=== PATIENT | female | born 1995 | race Caucasian/White ===

== ENCOUNTER 2021-10-23 19:28 | Emergency (ER) | payer MEDICAID ==
[~2021-10-23] VITALS: Ht 149.9 cm; Wt 50.0 kg
[2021-10-23 20:24] VITALS: BP 110/62
[2021-10-23] MEDS ORDERED: AZITTAB PO (22:06)
[2021-10-23] MEDS ORDERED: PROM1SOL4 PO (22:09)
== END 2021-10-23 22:11 | disposition home or self-care (01) ==
LOC: ER 19:46
DX: J40 Bronchitis, not specified as acute or chronic (principal); Z20.822 Contact with and (suspected) exposure to COVID-19
CPT/HCPCS: 36415; 71045; 87804

== ENCOUNTER 2024-11-07 19:37 | Emergency (ER) | payer MEDICAID ==
[~2024-11-07] VITALS: Ht 149.9 cm; Wt 59.7 kg
[~2024-11-07 19:37] MED LIST: AZITTAB PO; PROM1SOL4 PO
[2024-11-07 23:00] LABS: Hematocrit 38.1 % (36.0-46.0); Hemoglobin 13.1 g/dL (12.2-16.2); Mean Corpuscular Hemoglobin 28.3 pg (28.0-32.0); Mean Corpuscular Volume 82.0 fL (80.0-100.0); Nucleated Red Blood Cells % 0.1 %
[2024-11-07 23:12] LABS: Chloride 105 mmol/L (98-107); Sodium 139 mmol/L (136-145)
[2024-11-07 23:13] LABS: Anion Gap 10 (5-15); Carbon Dioxide 24 mmol/L (20-31)
[2024-11-07 23:14] LABS: Calcium 9.1 mg/dL (8.7-10.4)
[2024-11-07 23:18] LABS: BUN/Creatinine Ratio 20.6 (10.0-20.0); Blood Urea Nitrogen 13 mg/dL (9-23); Glucose 98 mg/dL (74-106)
[2024-11-07 23:21] LABS: Potassium 3.5 mmol/L (3.5-5.1)
--- NOTE | 2024-11-08 00:28 | DVH ---
INDICATION: preg vb TECHNIQUE: Multiple real-time grayscale transabdominal sonographic images along with color and duplex Doppler of the uterus and ovaries were obtained. COMPARISON: None FINDINGS: The uterus measures 10.9 x 6.7 x 6.5 cm. Intrauterine gestational sac measures 3.5 cm corre sponding with an 8 week 4 day gestation. Yolk sac identified. heart tones not documented at th is time. The pole is not identified. Trace cervical fluid and pelvic cul-de-sac free fluid. Right ovary not visualized. Left ovary measures 2.4 x 2.0 x 1.8 cm with normal Doppler color flow. Hypoechoic structure within t he right ovary measures 1.3 x 1.1 x 1.1 cm. IMPRESSION: 1. Intrauterine gestational sac corresponding with an 8 week 4 day gestation without identifiable fet al pole or heart tones at this time. Yolk sac identified. 2. Hypoechoic left ovarian structure consistent with corpus luteum versus ovarian cyst. 3. Pelvic cul-de-sac and cervical fluid.
--- NOTE | 2024-11-08 00:32 | ED.PDOC ---
[employer] HPI Comments 29-year-old female with current approximate 8 week brought in by significant other for evaluation of vaginal spotting for the last 2 days. Patient states today around 1800 she passed a clot. She denies any abdominal pain, nausea, vomiting, fever or dysuria. She states her last period was 08/18/2024. She states she had a prior ultrasound which showed a gestational sac but no IUP. Chief Complaint: Time Seen by MD: 22:06 Reviewed Notes: Nurses Notes Allergies: Coded Allergies: NO KNOWN ALLERGIES (Unverified , 12/25/15) Home Meds Active Scripts Promethazine-Dm (Promethazine Dm 6.25-15 mg/5Ml) 1 Madelin Madelin, 5 ML PO Q4HPRN PRN, #50 ML 0 Refills 5ml every 4 to 6 hours as needed for cough Prov:FANTA LIU 10/23/21 Azithromycin (Zithromax Z-Wilian) 250 Mg Tab, 250 MG PO DAILY for 5 Days, #5 TAB 0 Refills Prov:FANTA LIU 10/23/21 Information Source: Patient Mode of Arrival: Ambulatory Timing: Hours Past Medical History PAST MEDICAL HISTORY: Denies Surgical History: Denies all surgeries NETWORK CONSULTANT History: No Pertinent NETWORK CONSULTANT History 1 Para 0 LMP August 18, 2024 Family History Family History: Reviewed,noncontributory to illness Social History Smoker: Non-Smoker, Other Alcohol: Denies ETOH Use Drugs: Denies Drug Use Lives In: Home Constitutional: denies: chills, diaphoresis, fatigue, fever, malaise, sweats, weakness, others EENTM: denies: blurred vision, double vision, ear bleeding, ear discharge, ear drainage, ear pain, ear ringing, eye pain, eye redness, hearing loss, mouth pain, mouth swelling, nasal discharge, nose bleeding, nose congestion, nose pain , photophobia, tearing, throat pain, throat swelling, voice changes, others Respiratory: denies: cough, hemoptysis, orthopnea, SOB at rest, shortness of breath, SOB with excertion, stridor, wheezing, others Cardiovascular: denies: chest pain, dizzy spells, diaphoresis, Dyspnea on exertion, edema, irregular heart beat, left arm pain, lightheadedness, palpitations, PND, syncope, others Gastrointestinal: denies: abdomen distended, abdominal pain, blood streaked bowels, constipated, diarrhea, dysphagia, difficulty swallowing, hematemesis, melena, nausea, poor appetite, poor fluid intake, rectal bleeding, rectal pain, vomiting, others Genitourinary: reports: abnormal vagina bleeding; denies: burning, dyspareunia, dysuria, flank pain, frequency, hematuria, incontinence, pain, , vagina discharge, urgency, others Neurological: denies: dizziness, fainting, headache, left sided numbness, left sided weakness, numbness, paresthesia, pre-existing deficit, right sided numbness, right sided weakness, seizure, speech problems, tingling, tremors, weakness, others Musculoskeletal: denies: back pain, gout, joint pain, joint swelling, muscle pain, muscle stiffness, neck pain, others Integumetry: denies: bruises, change in color, change in hair/nails, dryness, laceration, lesions, lumps, rash, wounds, others Allergic/Immunocompromised: denies: Difficulty Healing, Frequent Infections, Hives, Itching, others Hematologic/Lymphatic: denies: anemia, blood clots, easy bleeding, easy bruising, swollen glands, others Endocrine: denies: excessive hunger, excessive sweating, excessive thirst, excessive urination, flushing, intolerance to cold, intolerance to heat, unexplained weight gain, unexplained weight loss, others Psychiatric: denies: anxiety, bipolar disorder, depression, hopeless, panic disorder, schizophrenia, sleepless, suicidal, others All Other Systems: Reviewed and Negative (Comprehensive systems review obtained and negative except for what is stated in the HPI.) Physical Exam General Appearance: No Apparent Distress HEENT: Other (Pupils and face symmetric. Moist mucous membranes.) Neck: Full Range of Motion, Normal Inspection Respiratory: Lungs Clear, No Accessory Muscle Use, No Respiratory Distress, Normal Breath Sounds Cardiovascular: No Edema, No JVD, Regular Rate/Rhythm Breast Exam: Deferred Gastrointestinal: Non Tender, Soft Genitalia: Deferred Pelvic: Deferred Rectal: Deferred Extremities: Normal inspection, Normal range of motion, Non-tender, No pedal edema Neurologic: Alert (Oriented x4), Normal Affect, Normal Mood, Other (Ambulatory) Cerebellar Function: NOT DONE Reflexes: NOT DONE Skin: Dry, Normal Color, Warm Lymphatic: NOT DONE Was a procedure done? Was a procedure done?: No Differential Diagnosis (NETWORK CONSULTANT) Vaginal Bleeding: - Complete, - Incomplete, - Inevitable, - Missed, - Threatened, Blood Loss Anemia, Myomatous Uterus X-Ray, Labs, Meds, VS Vital Signs Date Time Temp Pulse Resp B/P (MAP) Pulse Ox O2 Delivery O2 Flow Rate FiO2 11/07/24 19:40 98.2 82 16 117/69 96 98.2 Lab Test 11/07/24 22:25 Range/Units White Blood Count 10.0 4.4-10.8 10^3/uL Red Blood Count 4.64 4.0-5.20 10^6/uL Hemoglobin 13.1 12.2-16.2 g/dL Hematocrit 38.1 36.0-46.0 % Mean Corpuscular Volume 82.0 80.0-100.0 fL Mean Corpuscular Hemoglobin 28.3 28.0-32.0 pg Mean Corpuscular Hemoglobin Concent 34.5 32.0-36.0 g/dL Red Cell Distribution Width 14.6 H 11.8-14.3 % Platelet Count 323 140-450 10^3/uL Mean Platelet Volume 6.9 6.9-10.8 fL Neutrophils (%) (Auto) 61.3 37.0-80.0 % Lymphocytes (%) (Auto) 29.3 10.0-50.0 % Monocytes (%) (Auto) 6.8 0.0-12.0 % Eosinophils (%) (Auto) 2.3 0.0-7.0 % Basophils (%) (Auto) 0.3 0.0-2.0 % Neutrophils # (Auto) 6.1 1.6-8.6 10 ^3/uL Lymphocytes # (Auto) 2.9 0.4-5.4 10 ^3/uL Monocytes # (Auto) 0.7 0-1.3 10 ^3/uL Eosinophils # (Auto) 0.2 0-0.8 10 ^3/uL Basophils # (Auto) 0 0-0.2 10 ^3/uL Nucleated Red Blood Cells 0.1 % Sodium Level 139 136-145 mmol/L Potassium Level 3.5 3.5-5.1 mmol/L Chloride Level 105 98-107 mmol/L Carbon Dioxide Level 24 20-31 mmol/L Anion Gap 10 5-15 Blood Urea Nitrogen 13 9-23 mg/dL Creatinine 0.63 0.550-1.02 mg/dL Glomerular Filtration Rate Calc 123 >90 mL/min BUN/Creatinine Ratio 20.6 H 10.0-20.0 Serum Glucose 98 74-106 mg/dL Calcium Level 9.1 8.7-10.4 mg/dL Beta HCG, Quantitative 2897.7 H 1.5-4.2 mIU/mL PROCEDURE(s): OB4US - OB ULTRASOUND COMP LESS 14WKS REASON: preg vb ORDER NUMBER(s): [id number], ACCESSION NUMBER(s): [id number] INDICATION: preg vb TECHNIQUE: Multiple real-time grayscale transabdominal sonographic images along with color and duplex Doppler of the uterus and ovaries were obtained. COMPARISON: None FINDINGS: The uterus measures 10.9 x 6.7 x 6.5 cm. Intrauterine gestational sac measures 3.5 cm corresponding with an 8 week 4 day gestation. Yolk sac identified. heart tones not documented at this time. The pole is not identified. Trace cervical fluid and pelvic cul-de-sac free fluid. Right ovary not visualized. Left ovary measures 2.4 x 2.0 x 1.8 cm with normal Doppler color flow. Hypoechoic structure within the right ovary measures 1.3 x 1.1 x 1.1 cm. IMPRESSION: 1. Intrauterine gestational sac corresponding with an 8 week 4 day gestation without identifiable pole or heart tones at this time. Yolk sac identified. 2. Hypoechoic left ovarian structure consistent with corpus luteum versus ovarian cyst. 3. Pelvic cul-de-sac and cervical fluid. X-Ray, Labs, Meds, VS Comment 29-year-old female with current approximate 8 week complaining of vaginal spotting for the last 2 days and passing a clot today at 6:00 p.m. Vitals unremarkable Exam unremarkable Rhythm strip independently interpreted by me: Sinus rhythm, rate 82, no ectopy. Ob ultrasound IMPRESSION: 1. Intrauterine gestational sac corresponding with an 8 week 4 day gestation without identifiable pole or heart tones at this time. Yolk sac identified. 2. Hypoechoic left ovarian structure consistent with corpus luteum versus ovarian cyst. 3. Pelvic cul-de-sac and cervical fluid. CBC and basic metabolic panel unremarkable. Serum quantitative hCG 2897.7 No acute treatment indicated in the ED On re-evaluation, patient states she was having mild bleeding and no abdominal or pelvic pain. She states she has an appointment with her OBGYN in 2 days. She was advised regarding workup findings, my impression, treatment plan and follow-up recommendations. She expressed understanding and agreed. Time of 1ST Reevaluation: 00:30 Reevaluation 1ST: Unchanged Patient Education/Counseling: Diagnosis, Treatment, Need For Follow Up Family Education/Counseling: Diagnosis, Treatment, Need For Follow Up Departure 1 Departure Time of Disposition: 00:30 Impression: Primary Impression: Vaginal bleeding affecting early Disposition: 01 HOME / SELF CARE / HOMELESS Condition: Stable Additional Instructions: Your blood tests were unremarkable. Your serum quantitative hCG was 2897.7. I have enclosed your ultrasound report below. The gestational sac and yolk sac were seen, however the fetus was not seen. Follow-up with your OBGYN in 2 days as scheduled. Return to ER for persistent or worsening symptoms. [place] [id number] Ph: [phone] DIAGNOSTIC IMAGING Diagnostic Imaging Report : [id number] Signed PATIENT: YURIDIA FRANZ ACCT: [id number] UNIT: [id number] : 1995 LOC: ER ROOM / BED: / AGE / SEX: 29 / F ADM STATUS: REG ER SERVICE 05 ORDERING PHYSICIAN: MARILYN FERRARO MD PROCEDURE(s): OB4US - OB ULTRASOUND COMP LESS 14WKS REASON: preg vb ORDER NUMBER(s): [id number], ACCESSION NUMBER(s): [id number] INDICATION: preg vb TECHNIQUE: Multiple real-time grayscale transabdominal sonographic images along with color and duplex Doppler of the uterus and ovaries were obtained. COMPARISON: None FINDINGS: The uterus measures 10.9 x 6.7 x 6.5 cm. Intrauterine gestational sac measures 3.5 cm corresponding with an 8 week 4 day gestation. Yolk sac identified. heart tones not documented at this time. The pole is not identified. Trace cervical fluid and pelvic cul-de-sac free fluid. Right ovary not visualized. Left ovary measures 2.4 x 2.0 x 1.8 cm with normal Doppler color flow. Hypoechoic structure within the right ovary measures 1.3 x 1.1 x 1.1 cm. IMPRESSION: 1. Intrauterine gestational sac corresponding with an 8 week 4 day gestation without identifiable pole or heart tones at this time. Yolk sac identified. 2. Hypoechoic left ovarian structure consistent with corpus luteum versus ovarian cyst. 3. Pelvic cul-de-sac and cervical fluid. Discharged With: Significant Other Critical Care Note Critical Care Time?: No Stability Stability form required: No Heart Score Heart Score: Heart Score Response (Comments) Value History N/A 0 EKG N/A 0 Age N/A 0 Risk Factors N/A 0 Troponin N/A 0 Total 0 I personally scribed for MARILYN FERRARO MD ([email or web address]) on 11/08/24 at 00:35. Electronically submitted by Gibran Noe ([email or web address]). MARILYN FERRARO MD Nov 08, 2024 00:32
[2024-11-08 01:11] VITALS: BP 104/62; TEMP 98.5
[2024-11-08 01:20] VITALS: PULSE 73; RESP 16; O2SAT 100
== END 2024-11-08 01:34 | disposition home or self-care (01) ==
LOC: ER 19:37
DX: O20.9 Hemorrhage in early pregnancy, unspecified (principal); O20.0 Threatened abortion; Z3A.08 8 weeks gestation of pregnancy
CPT/HCPCS: 36415; 76801; 76817; 80048; 84702; 85025